=== PATIENT | female | born 1965 | race Caucasian/White ===

== ENCOUNTER → 2017-01-24 | Outpatient (CLI) | payer OTHER ==
--- NOTE | 2017-01-24 12:30 | RADIOLOGY REPORT PS360 ---
[facility] HEPATOBILIARY SCAN HISTORY: RUQ PAIN ORDERING PHYSICIAN: Jeanmarie Rivera MD PATIENT AGE: 51 years COMPARISON: None DOSE: 8.71 mCi technetium Choletec. Ensure was used for fatty meal FINDINGS: Homogeneous activity is present within the hepatic parenchyma. Activity is present in the gallbladder by 15 minutes. Activity is present in the small bowel by 10 minutes. The gallbladder ejection fraction is calculated to be 42% which is within normal limits The patient did not report any pain during or after the ingestion of fatty meal IMPRESSION: Unremarkable hepatobiliary scan and gallbladder ejection fraction. No evidence of common or cystic duct obstruction with normal gallbladder ejection fraction
== END ==
LOC: RAD 10:04
DX: R10.11 Right upper quadrant pain (principal)
CPT/HCPCS: A9537